=== PATIENT | male | born 1935 | race Caucasian/White ===

== ENCOUNTER 2016-11-20 12:34 | Emergency (ER) | payer OTHER ==
[2016-11-20 15:12] VITALS: BP 138/80
== END 2016-11-20 15:12 | disposition home or self-care (01) ==
LOC: ED 12:34
DX: K21.9 Gastro-esophageal reflux disease without esophagitis (principal); I48.91 Unspecified atrial fibrillation; I10 Essential (primary) hypertension; E03.9 Hypothyroidism, unspecified

== ENCOUNTER 2016-11-29 18:10 | Inpatient (IN) | payer OTHER ==
[~2016-11-29] VITALS: Ht 162.6 cm; Wt 75.5 kg
[2016-11-29 21:17] LABS: BASOPHIL % 0.4 % (0-2); PLATELET COUNT 282 x10^3mcL (130-400); RED CELL DISTRIBUTION WIDTH 14.2 % (11.5-14.5)
[2016-11-29 21:28] LABS: ALBUMIN 4.2 g/dL (3.4-5.0); ALKALINE PHOSPHATASE 94 U/L (46-116); ALT/SGPT 42 U/L (16-63); AST/SGOT 28 U/L (15-37); BILIRUBIN TOTAL 0.73 mg/dL (0.20-1.00); CALCIUM 9.3 mg/dL (8.5-10.1); CARBON DIOXIDE 32.5 mmol/L (21-32); CHLORIDE SERUM 92 mmol/L (98-107); CREATININE SERUM 0.7 mg/dL (0.7-1.3); GLUCOSE SERUM 97 mg/dL (74-106); LIPASE 127 IU/L (73-393); SODIUM SERUM 130 mmol/L (136-145); T4(THYROXINE) 10.2 ug/dL (4.7-13.3)
[2016-11-29 21:43] LABS: TOTAL PROTEIN, SERUM 8.6 g/dL (6.4-8.2)
[2016-11-29 21:46] LABS: microscopic required? YES; urine erythrocyte TRACE (NEGATIVE)
[2016-11-29] MEDS ORDERED: PRA40 PO (22:55)
[2016-11-29] MEDS ORDERED: HYDROCHLOROTHIA25 MG PO (22:56)
[2016-11-29] MEDS ORDERED: NOR10 PO (22:56)
[2016-11-29] MEDS ORDERED: ACETAMINOPHEN A1 TAB PO (22:57)
[2016-11-29] MEDS ORDERED: BENAZEPRIL HYDR20 M1 PO (22:57)
[2016-11-29] MEDS ORDERED: LEVOXYL0.05 MG PO (22:57)
[2016-11-29] MEDS ORDERED: ELIQUIS5 MG PO (22:57)
[2016-11-29 23:47] LABS: CHOLESTEROL/HDL RATIO 2.2; MAGNESIUM 1.9 mg/dL (1.8-2.4); PHOSPHOROUS 3.4 mg/dL (2.5-4.9)
[2016-11-29 23:51] LABS: AMPHETAMINE QUAL UR NONE DETECTED (NEG <=1000)
[2016-11-29 23:52] LABS: FREE T4 1.39 ng/dL (0.76-1.46); FREE THYROXINE INDEX 3.8 ug/dL (1.4-4.5); T4(THYROXINE) 10.5 ug/dL (4.7-13.3)
[2016-11-29 23:54] VITALS: BP 139/77
[2016-11-30 02:55] LABS: T3 TOTAL 0.87 ng/mL
[2016-11-30 05:39] VITALS: BP 127/64
[2016-11-30 08:02] VITALS: BP 135/62
[2016-11-30 08:24] LABS: BASOPHIL % 0.3 % (0-2); PLATELET COUNT 271 x10^3mcL (130-400); RED CELL DISTRIBUTION WIDTH 14.3 % (11.5-14.5)
[2016-11-30 08:33] LABS: CALCIUM 9.6 mg/dL (8.5-10.1); CARBON DIOXIDE 30.5 mmol/L (21-32); CHLORIDE SERUM 96 mmol/L (98-107); CREATININE SERUM 0.7 mg/dL (0.7-1.3); GLUCOSE SERUM 95 mg/dL (74-106); POTASSIUM SERUM 4.2 mmol/L (3.5-5.1); SODIUM SERUM 132 mmol/L (136-145)
[2016-11-30 13:52] VITALS: BP 132/57
[2016-11-30 17:52] VITALS: BP 138/73
[2016-11-30 21:30] VITALS: BP 120/59
[2016-12-01 05:46] VITALS: BP 125/73
[2016-12-01 07:00] LABS: BASOPHIL % 0.6 % (0-2); PLATELET COUNT 240 x10^3mcL (130-400); RED CELL DISTRIBUTION WIDTH 14.5 % (11.5-14.5)
[2016-12-01 07:52] LABS: CARBON DIOXIDE 30.6 mmol/L (21-32); CHLORIDE SERUM 97 mmol/L (98-107); CREATININE SERUM 0.8 mg/dL (0.7-1.3); GLUCOSE SERUM 86 mg/dL (74-106); MAGNESIUM 1.8 mg/dL (1.8-2.4); PHOSPHOROUS 3.3 mg/dL (2.5-4.9); POTASSIUM SERUM 3.7 mmol/L (3.5-5.1); SODIUM SERUM 135 mmol/L (136-145)
[2016-12-01 09:37] VITALS: BP 101/71
[2016-12-01 12:41] VITALS: BP 118/64
[2016-12-01 13:01] VITALS: BP 114/72
== END 2016-12-01 14:09 | disposition home or self-care (01) | DRG 309 ==
LOC: ED 18:10 → DU 22:08
PROVIDERS: Emergency Medicine; ADMIT Student in an Organized Health Care Education/Training Program
DX: I48.2 Chronic atrial fibrillation (principal); E87.1 Hypo-osmolality and hyponatremia; E87.6 Hypokalemia; E03.9 Hypothyroidism, unspecified; I35.1 Nonrheumatic aortic (valve) insufficiency; I34.0 Nonrheumatic mitral (valve) insufficiency; I36.1 Nonrheumatic tricuspid (valve) insufficiency; E87.8 Other disorders of electrolyte and fluid balance, not elsewhere classified; R31.9 Hematuria, unspecified; I10 Essential (primary) hypertension; E78.5 Hyperlipidemia, unspecified; Z68.28 Body mass index [BMI] 28.0-28.9, adult; Z79.01 Long term (current) use of anticoagulants
CPT/HCPCS: 83880; 84439; J3480; J3490; J7030; J7040; Q0092